=== PATIENT | male | born 1960 | race Caucasian/White ===

== ENCOUNTER 2024-06-30 15:42 | Outpatient (CLI) | payer OTHER, SELFPAY ==
--- NOTE | ~2024-06-30 | US_ITS ---
EXAMINATION: US thyroid DATE: 06/30/2024 16:04 INDICATION: Subclinical hyperthyroidism TECHNIQUE: Multiple ultrasound images of the thyroid were obtained. COMPARISON: None. FINDINGS: The right thyroid lobe measures 7.5 x 3.3 x 3.1 cm. The left thyroid lobe measures 6.3 x 3.1 x 2.3 c m. 3 thyroid isthmus measures 8 mm maximal thickness. 2.3 cm mixed solid and cystic nodule with isoec hoic solid component which is wider than tall with smooth margins and without echogenic (TI-RADS 2, n ot suspicious, no FNA recommended). 1.8 cm solid hypoechoic nodule which is wider than tall with smo oth and ill-defined margins and without echogenic foci in the left thyroid lobe (TI-RADS 4, moderatel y suspicious , FNA if >=1.5 cm, annual followup is >=1 cm). Finally there is a 1.1 cm predominantly s olid isoechoic nodule with lobular margins and without echogenic foci, also TI-RADS 4. IMPRESSION: 1. Multinodular goiter. Recommend ultrasound-guided biopsy 1.8 cm TI-RADS 4 left thyroid nodule. Reviewed, dictated and finalized at location A. IMPRESSION: 1. Multinodular goiter. Recommend ultrasound-guided biopsy 1.8 cm TI-RADS 4 lef t thyroid nodule.
== END 2024-06-30 15:43 | disposition home or self-care (01) ==
DX: E04.2 Nontoxic multinodular goiter (principal); E05.90 Thyrotoxicosis, unspecified without thyrotoxic crisis or storm
CPT/HCPCS: 76536